=== PATIENT | female | born 1990 | race American Indian/Alaskan Native ===

== ENCOUNTER 2018-03-19 18:55 | Emergency (ER) | payer BC ==
[2018-03-19 19:42] VITALS: RESP 20
[2018-03-19] MEDS ORDERED: Sodium Chloride 0.9% 1,000 ML IV ONE (20:04)
--- NOTE | 2018-03-19 20:04 | C.PDOC ---
History Of Present Illness 27 year old female, G1 1 AB, presents to the ED for evaluation. Patient states she went to see her Doctor and was told not pulse was seen. Patient presents to the ED requesting for a second opinion. Patient denies fever, chills , nausea, vomit, diarrhea, rash, vaginal bleeding, vaginal discharge. Time Seen by Provider: 03/19/18 20:03 Chief Complaint (Nursing): Female Genitourinary History Per: Patient History/Exam Limitations: no limitations Onset/Duration Of Symptoms: Days Current Symptoms Are (Timing): Still Present Associated Symptoms: denies: Nausea, Vomiting, Diarrhea, Urinary Symptoms Recent travel outside of the [place]: No Additional History Per: Patient Abnormal Vaginal Bleeding: No Last Menstral Period: 01/10/18 : 2 Past Medical History Reviewed: Historical Data, Nursing Documentation, Vital Signs Vital Signs: Last Vital Signs Temp 98.3 F 03/19/18 19:36 Pulse 88 03/19/18 19:36 Resp 20 03/19/18 19:36 BP 142/75 03/19/18 19:36 Pulse Ox 99 03/19/18 19:36 - Medical History PMH: No Chronic Diseases Surgical History: No Surg Hx Family History: States: Unknown Family Hx - Social History Hx Alcohol Use: Yes Hx Substance Use: No Review Of Systems Constitutional: Negative for: Fever, Chills Cardiovascular: Negative for: Chest Pain Respiratory: Negative for: Shortness of Breath Gastrointestinal: Negative for: Nausea, Vomiting, Abdominal Pain Genitourinary: Negative for: Vaginal Discharge, Vaginal Bleeding Neurological: Negative for: Weakness, Numbness Physical Exam - Physical Exam Appears: Non-toxic, No Acute Distress Skin: Warm, Dry Head: Normacephalic Eye(s): bilateral: Normal Inspection Oral Mucosa: Moist Neck: Supple Chest: Symmetrical Cardiovascular: Rhythm Regular Respiratory: No Rales, No Rhonchi, No Wheezing Gastrointestinal/Abdominal: Soft, No Tenderness, No Guarding, No Rebound Extremity: Bilateral: Atraumatic, Normal Color And Temperature, Normal ROM Neurological/Psych: Oriented x3, Normal Speech, Normal Cognition Gait: Steady ED Course And Treatment - Laboratory Results Result Diagrams: 03/19/18 20:39 03/19/18 20:39 O2 Sat by Pulse Oximetry: 99 (ON RA) Pulse Ox Interpretation: Normal - CT Scan/US Pelvic US Other Rad Studies (CT/US): Read By Radiologist, Radiology Report Reviewed CT/US Interpretation: Procedure. OB Transvaginal Ultrasound. History. No fet al heart, 8 weeks . Comparison. None available. Findings. Uterus. Single intrauterine gestation. CRL measures 0.52 cm, equivalent to 6 weeks 2 days gestation. Gestational sac diameter measures 3.66 cm, equivalent to 8 weeks 6 days gestation. Yolk sac measures 2.02 cm. Heart rate not present. Subchorionic hemorrhage is seen. . Uterus measures 10.11 x 8.09 x 8.65 cm. Anteverted. Anterior mid fibroid measures 1.97 x 1.85 x 1.89 cm. Mid uterine fibroid measures 1.73 x 1.60 x 1.76 cm. . Right Ovary. Measures 2.63 x 1.61 x 2.15 cm. No mass. Normal flow. Left Ovary. Measures 3.62 x 3.01 x 3.05 cm. Normal flow. Cyst measures 2.54 x 2.01 x 2.06 cm. Free Fluid. None. Other Findings. None. Impression. Gestation sac, yolk sac and pole seen. No heart beat compatible with demise. Uterine fibroids. Left ovarian cyst. Subchorionic hemorrhage seen. . Electronically signed on Mar 19, 2018 10:22:26 PM EST by: Yariel Atkins M.D., [place] Certified By [facility] & [facility]. Fellowship Trained MRI and CT Specialist Progress Note: Plan: - Labs. - IV fluids. - UA. - Pelvic US Medical Decision Making Medical Decision Making: Upon provider reevaluation patient is feeling better, is medically stable, and requires no further treatment in the ED at this time. Patient will be discharged home . Counseling was provided and all questions were answered regarding diagnosis and need for follow up with dr flores. There is agreement to discharge plan. Return if symptoms persist or worsen. Disposition Counseled Patient/Family Regarding: Studies Performed, Diagnosis, Need For Followup - Disposition Referrals: Kelvin Flores MD [Non-Staff] - Disposition: HOME/ ROUTINE Disposition Time: 20:03 Condition: FAIR Instructions: Threatened Miscarriage (DC) Forms: Critique^It ([place]an) - Clinical Impression Clinical Impression: demise - Scribe Statement The provider has reviewed the documentation as recorded by the Scribe Sammy Guy All medical record entries made by the Scribe were at my direction and personally dictated by me. I have reviewed the chart and agree that the record accurately reflects my personal performance of the history, physical exam, medical decision making, and the department course for this patient. I have also personally directed, reviewed, and agree with the discharge instructions and disposition.
[2018-03-19] MEDS ORDERED: Sodium Chloride 0.9% 1,000 ML ONE (20:35)
[2018-03-19 20:44] LABS: BASO # 0.1 K/uL (0.0-0.2); BASO % 0.7 % (0.0-2.0); EOS # 0.1 K/uL (0.0-0.7); EOS % 1.2 % (0.0-4.0); HEMOGLOBIN 12.4 g/dL (11.0-16.0); LYMPH % 24.5 % (20.0-40.0); MEAN CELL VOLUME 97.2 fL (81.0-99.0); MEAN CORPUSCULAR HEMOGLOBIN 32.6 pg (27.0-31.0); MEAN CORPUSCULAR HGB CONC 33.5 g/dL (33.0-37.0); MEAN PLATELET VOLUME 6.8 fL (7.2-11.7); MONO # 0.5 K/uL (0.0-0.8); MONO % 6.3 % (0.0-10.0); NEUT # 5.6 K/uL (1.8-7.0); NEUT % 67.3 % (50.0-75.0); RBC 3.8 Mil/uL (3.80-5.20); RED CELL DISTRIBUTION WIDTH 11.8 % (11.5-14.5); WHITE BLOOD COUNT 8.3 K/uL (4.8-10.8)
[2018-03-19 20:55] LABS: SQUAMOUS EPITHIAL 1 /hpf (0-5); URINE BILIRUBIN NEGATIVE (NEGATIVE); URINE BLOOD NEGATIVE (NEGATIVE); URINE CLARITY Clear (Clear); URINE COLOR Yellow (YELLOW); URINE GLUCOSE (UA) NORMAL (Normal); URINE LEUKOCYTE ESTERASE NEG Leu/uL (Negative); URINE PROTEIN NEGATIVE (NEGATIVE)
[2018-03-19 20:58] LABS: ALB/GLOB RATIO 1.3 (1.0-2.1); ALBUMIN 4.6 g/dL (3.5-5.0); ALT/SGPT 21 U/L (9-52); AST/SGOT 16 U/L (14-36); BLOOD UREA NITROGEN 12 mg/dL (7-17); CALCIUM 9.4 mg/dl (8.6-10.4); GFR NON-AFRICAN AMERICAN > 60
[2018-03-19 21:03] LABS: HCG,QUALITATIVE URINE POSITIVE (NEGATIVE)
[2018-03-19 22:43] VITALS: BP 128/88; PULSE 89; TEMP 99; O2SAT 100
--- NOTE | 2018-03-20 09:28 | US ---
HISTORY: 27-year-old female with history of no heart at 8 weeks . COMPARISON: None TECHNIQUE: Transvaginal and transabdominal technique utilized. FINDINGS: UTERUS: Measures 10.1 x 8.1 x 8.7cm. The uterus is anteverted. Two fibroids noted 1 anterior mid body measures 2.0 x 1.9 x 1.9 cm. Another in the mid body measures 1.7 x 1.6 x 1.8 cm. Both fibroids are intramural in close to each other 1 of these is also in close proximity with the decidual reaction. An intrauterine gestational sac measuring 3.7 cm is present corresponding to a 8 week week 6 day gestation. 2.02 cm yolk sac is present. 0.52 cm crown-rump length embryonic pole measures 6 weeks 2 days. No cardiac activity noted 1.8 x 1.1 by 0.9 cm subchorionic hemorrhage noted Cervix No cervical abnormality identified. RIGHT OVARY: Measures 2.6 x 1.6 x 2.2 cm. No solid mass. Normal flow. LEFT OVARY: Measures 3.6 x 3.0 x 3.1 cm. No solid mass. Normal flow. A 2.5 x 2.0 x 2.1 cm inferred corpus luteal cyst is noted FREE FLUID: There is no free fluid present. OTHER FINDINGS: IMPRESSION: Single intrauterine gestation without cardiac activity. Gestational age by ultrasound 7 weeks 4 days +/-0 weeks 4 days. This contrasts with the clinical dates of 9 weeks 5 days per LMP 01/10/2018.. Subchorionic hemorrhage noted as above. Findings are compatible with failed and/or demise. Follow-up recommended. Uterine fibroids noted. Left ovarian cyst Concordant results (preliminary interpretation) provided by [facility].
== END 2018-03-19 22:43 | disposition home or self-care (01) ==
LOC: C.ER 18:55
DX: O02.1 Missed abortion (principal)
CPT/HCPCS: 76805; 76817; 80053; 81001; 84702; 84703; 85025; 86850; 86900; 96360; 99284; J7030